=== PATIENT | male | born 1990 | race Caucasian/White ===

== ENCOUNTER 2023-04-23 21:46 | Emergency (ER) | payer OTHER ==
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
[2023-04-23] MEDS ORDERED: XYLOCAINE 1% HCL 20 ML MDV ONE (23:03)
[2023-04-23] MEDS ORDERED: Adacel Vial IM ONE ×2 (23:22→23:27)
[2023-04-23 23:50] VITALS: BP 115/81; PULSE 66; O2SAT 99
--- NOTE | 2023-04-24 07:41 | XRAY ---
Indication: Plantar laceration. Comparison: None 3 nonweightbearing views left foot obtained. No bony, articular, or soft tissue abnormalities.
== END 2023-04-23 23:51 | disposition home or self-care (01) ==
LOC: ED 21:46
DX: S91.112A Laceration without foreign body of left great toe without damage to nail, initial encounter (principal); W45.8XXA Other foreign body or object entering through skin, initial encounter; W22.8XXA Striking against or struck by other objects, initial encounter; Y93.11 Activity, swimming; Y92.838 Other recreation area as the place of occurrence of the external cause; I10 Essential (primary) hypertension; Z79.899 Other long term (current) drug therapy; Z23 Encounter for immunization
CPT/HCPCS: 73630; 90471; 90715; 99283

== ENCOUNTER 2023-09-01 08:44 | Emergency (ER) | payer MEDICAID, OTHER ==
--- NOTE | 2023-09-01 08:47 | ERPHSYRPT ---
- History of Present Illness Time Seen by Provider: 09/01/23 08:47 Historian: patient Exam Limitations: no limitations Physician History: This is a 33-year-old overweight white male who presents with right upper quadrant abdominal pain. His primary care provider is Dr. Orellana. Patient admits to consuming 20 beers a day. He also stated that he has not had any alcoholic beverage the last 2 full 24-hour period. Patient has a history of anxiety/depression and hypertension. Patient has had the right upper quadrant abdominal pain that is sharp and stabbing, intermittently over the last several months. In the last couple days his symptoms have worsened. He has had chronic diarrhea and nausea without vomiting. Patient wants to try to avoid narcotics. Patient also complains of right testicular pain for the last 2 days. Patient states that he has a history of right testicular "cyst". Timing/Duration: intermittent, worse, other (For several months) Quality: sharpness, stabbing Abdominal Pain Onset Location: RUQ Pain Radiation: no radiation Severity of Pain-Max: moderate Severity of Pain-Current: moderate Modifying Factors: Improves With: other (Diarrhea nausea) Associated Symptoms: diarrhea, loss of appetite, nausea, No chest pain, No fever/chills, No shortness of breath, No vomiting Previous symptoms: same symptoms as today, no recent treatment Allergies/Adverse Reactions: Penicillins Allergy (Verified 09/01/23 08:44) Home Medications: Buspirone HCl 7.5 mg PO BID 04/23/23 [History] Citalopram Hydrobromide [Celexa] 40 mg PO DAILY 04/23/23 [History] Lisinopril/Hydrochlorothiazide [Lisinopril-Hctz 20-25 mg Tab] 1 each PO DAILY 04/23/23 [History] Hx Tetanus, Diphtheria Vaccination/Date Given: No (unknown) Hx Influenza Vaccination/Date Given: No Hx Pneumococcal Vaccination/Date Given: No Travel Risk - International Travel Have you traveled outside of the country in past 3 weeks: No - Coronavirus Screening Are you exhibiting any of the following symptoms?: No Close contact with a COVID-19 positive Pt in past 14-21 Days: No - Vaccine Status Have you recieved a Covid-19 vaccination: No - Review of Systems Constitutional: No Symptoms Eyes: No Symptoms Ears, Nose, & Throat: No Symptoms Respiratory: No Symptoms Cardiac: No Symptoms Abdominal/Gastrointestinal: Abdominal Pain, Nausea, Diarrhea, Appetite Changes, No Vomiting, No Constipation Genitourinary Symptoms: No Symptoms Musculoskeletal: No Symptoms Skin: No Symptoms Neurological: No Symptoms Psychological: Alcohol Abuse, Anxiety, Depression Endocrine: No Symptoms Hematologic/Lymphatic: No Symptoms Immunological/Allergic: No Symptoms All Other Systems: Reviewed and Negative - Past Medical History Pertinent Past Medical History: Yes Cardiac History: Hypertension Psycho-Social History: Depression - Past Surgical History Past Surgical History: Yes Musculoskeletal: Orthopedic Surgery Other Surgical History: rt femur, rt ankle - Social History Smoking Status: Never smoker Exposure to second hand smoke: No Drug Use: none Patient Lives Alone: No - Nursing Vital Signs Nursing Vital Signs: Initial Vital Signs Temperature 97.6 F 09/01/23 08:55 Pulse Rate 77 09/01/23 08:55 Respiratory Rate 18 09/01/23 08:55 Blood Pressure 131/97 09/01/23 08:55 O2 Sat by Pulse Oximetry 99 09/01/23 08:55 Pain Scale Pain Intensity 4 - Physical Exam General Appearance: no apparent distress, alert, anxiety, obese Eye Exam: PERRL/EOMI, eyes nml inspection Ears, Nose, Throat Exam: normal ENT inspection, moist mucous membranes Neck Exam: normal inspection, non-tender, supple, full range of motion Respiratory Exam: normal breath sounds, lungs clear, airway intact, No chest tenderness, No respiratory distress Cardiovascular Exam: regular rate/rhythm, normal heart sounds, normal peripheral pulses Gastrointestinal/Abdomen Exam: soft, normal bowel sounds, tenderness (Right upper quadrant), guarding (Right upper quadrant to palpation), No rebound Male Genitalia Exam: normal genitalia Rectal Exam: not done Back Exam: normal inspection, normal range of motion, No CVA tenderness, No vert ebral tenderness Extremity Exam: normal inspection, normal range of motion, pelvis stable Neurologic Exam: alert, oriented x 3, cooperative, 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, normal mood/affect, nml cerebellar function, nml station & gait, sensation nml Skin Exam: normal color, warm, dry Lymphatic Exam: No adenopathy SpO2 Interpretation: normal O2 Delivery: Room Air - Course Nursing assessment & vital signs reviewed: Yes EKG Interpreted by Me: RATE (77), Sinus Rhythm, NORMAL AXIS, NORMAL INTERVALS, NORMAL QRS, NORMAL ST-T, Other (No evidence of acute ischemic changes.) Ordered Tests: Active Orders 24 hr Category Date Time Status EKG-ER Only STAT Care 09/01/23 09:07 Active IV Insertion STAT Care 09/01/23 09:07 Active ABDOMEN AND PELVIS W/0 CONTRAS [CT] Stat Exams 09/01/23 09:07 Completed TESTICLE [US] Stat Exams 09/01/23 09:33 Completed AMYLASE Stat Lab 09/01/23 09:14 Completed CBC W DIFF Stat Lab 09/01/23 09:14 Completed CMP Stat Lab 09/01/23 09:14 Completed ETHYL ALCOHOL Stat Lab 09/01/23 09:14 Completed LIPASE Stat Lab 09/01/23 09:14 Completed UA W/RFX UR CULTURE Stat Lab 09/01/23 09:14 Completed Urine Triage Profile Stat Lab 09/01/23 09:14 Completed Medication Summary Discontinued Medications Generic Name Dose Route Start Last Admin Trade Name Freq PRN Reason Stop Dose Admin Sodium Chloride 1,000 mls @ 999 mls/hr 09/01/23 09:07 09/01/23 10:39 Sodium Chloride 0.9% 1000 Ml IV 09/01/23 10:07 Infused .Q1H1M STA Infusion Sodium Chloride Confirm 09/01/23 09:29 Sodium Chloride 0.9% 1000 Ml Administered 09/01/23 09:30 Dose 1,000 mls @ ud .ROUTE .STK-MED ONE Lorazepam 1 mg 09/01/23 09:45 09/01/23 09:57 Lorazepam 2 Mg/1 Ml 2 Mg Vial IV 09/01/23 09:46 1 mg STAT ONE Administration Lorazepam Confirm 09/01/23 09:56 Lorazepam 2 Mg/1 Ml 2 Mg Vial Administered 09/01/23 09:57 Dose 2 mg .ROUTE .STK-MED ONE Ondansetron HCl 4 mg 09/01/23 09:07 09/01/23 09:31 Ondansetron Hcl 4 Mg/2 Ml Vial IV 09/01/23 09:08 4 mg STAT ONE Administration Ondansetron HCl Confirm 09/01/23 09:28 Ondansetron Hcl 4 Mg/2 Ml Vial Administered 09/01/23 09:29 Dose 4 mg .ROUTE .STK-MED ONE Pantoprazole Sodium 40 mg 09/01/23 09:07 09/01/23 09:31 Pantoprazole 40 Mg Vial IV 09/01/23 09:08 40 mg STAT ONE Administration Pantoprazole Sodium Confirm 09/01/23 09:28 Pantoprazole 40 Mg Vial Administered 09/01/23 09:29 Dose 40 mg IV .STK-MED ONE Lab/Rad Data: Laboratory Result Diagrams 09/01/23 09:14 09/01/23 09:14 Laboratory Results 09/01/23 09/01/23 09/01/23 Range/Units 09:14 09:14 09:14 WBC 6.0 (4.0-10.5) x10^3/uL RBC 5.11 (4.1-5.6) x10^6/uL Hgb 15.3 (12.5-18.0) g/dL Hct 45.4 (42-50) % MCV 88.8 (78-100) fL MCH 29.9 (26-32) pg MCHC 33.7 (32-36) g/dL RDW 11.7 (11.5-14.0) % Plt Count 266 (150-450) x10^3/uL MPV 9.6 (7.5-11.0) fL Gran % 66.1 H (36.0-66.0) % Immature Gran % (Auto) 0.3 (0.00-0.4) % Nucleat RBC Rel Count 0.0 (0.00-0.1) % Eos # (Auto) 0.13 (0-0.5) x10^3/uL Immature Gran # (Auto) 0.02 (0.00-0.03) x10^3u/L Absolute Lymphs (auto) 1.21 (1.0-4.6) x10^3/uL Absolute Monos (auto) 0.64 (0.0-1.3) x10^3/uL Absolute Nucleated RBC 0.00 (0.00-0.01) x10^3u/L Lymphocytes % 20.1 L (24.0-44.0) % Monocytes % 10.6 (0.0-12.0) % Eosinophils % 2.2 (0.00-5.0) % Basophils % 0.7 (0.0-0.4) % Absolute Granulocytes 3.98 (1.4-6.9) x10^3/uL Basophils # 0.04 (0-0.4) x10^3/uL Sodium 139 (137-145) mmol/L Potassium 4.0 (3.5-5.1) mmol/L Chloride 105 (98-107) mmol/L Carbon Dioxide 27 (22-30) mmol/L Anion Gap 10.5 (5-15) MEQ/L BUN 19 (9-20) mg/dL Creatinine 0.93 (0.66-1.25) mg/dL Estimated GFR > 60.0 ML/MIN Glucose 99 (74-106) mg/dL Calcium 9.0 (8.4-10.2) mg/dL Total Bilirubin 0.60 (0.2-1.3) mg/dL AST 39 (17-59) U/L ALT 52 H (0-50) U/L Alkaline Phosphatase 81 (38-126) U/L Serum Total Protein 7.4 (6.3-8.2) g/dL Albumin 4.4 (3.5-5.0) g/dL Amylase 86 (30-110) U/L Lipase 62 (23-300) U/L Urine Color (Yellow) Urine Appearance (Clear) Urine pH (4.6-8.0) Ur Specific Bangs (1.005-1.030) Urine Protein (Negative) Urine Glucose (UA) (Negative) mg/dL Urine Ketones (Negative) Urine Blood (Negative) Urine Nitrite (Negative) Urine Bilirubin (Negative) Urine Urobilinogen (0.2) mg/dL Ur Leukocyte Esterase (Negative) U Hyaline Cast (Auto) (0-2) /LPF Urine Microscopic RBC (0-5) /HPF Urine Microscopic WBC (0-5) /HPF Ur Epithelial Cells (None Seen) /HPF Urine Bacteria (None Seen) /HPF Urine Culture Reflexed (NO) Urine Opiates Level NEGATIVE (NEGATIVE) Ur Methadone NEGATIVE (NEGATIVE) Urine Barbiturates NEGATIVE (NEGATIVE) Ur Phencyclidine (PCP) NEGATIVE (NEGATIVE) Urine Amphetamine NEGATIVE (NEGATIVE) U Benzodiazepine Level NEGATIVE (NEGATIVE) Urine Cocaine NEGATIVE (NEGATIVE) Urine Marijuana (THC) NEGATIVE (NEGATIVE) Ethyl Alcohol < 10 (0-10) mg/dL 09/01/23 Range/Units 09:14 WBC (4.0-10.5) x10^3/uL RBC (4.1-5.6) x10^6/uL Hgb (12.5-18.0) g/dL Hct (42-50) % MCV (78-100) fL MCH (26-32) pg MCHC (32-36) g/dL RDW (11.5-14.0) % Plt Count (150-450) x10^3/uL MPV (7.5-11.0) fL Gran % (36.0-66.0) % Immature Gran % (Auto) (0.00-0.4) % Nucleat RBC Rel Count (0.00-0.1) % Eos # (Auto) (0-0.5) x10^3/uL Immature Gran # (Auto) (0.00-0.03) x10^3u/L Absolute Lymphs (auto) (1.0-4.6) x10^3/uL Absolute Monos (auto) (0.0-1.3) x10^3/uL Absolute Nucleated RBC (0.00-0.01) x10^3u/L Lymphocytes % (24.0-44.0) % Monocytes % (0.0-12.0) % Eosinophils % (0.00-5.0) % Basophils % (0.0-0.4) % Absolute Granulocytes (1.4-6.9) x10^3/uL Basophils # (0-0.4) x10^3/uL Sodium (137-145) mmol/L Potassium (3.5-5.1) mmol/L Chloride (98-107) mmol/L Carbon Dioxide (22-30) mmol/L Anion Gap (5-15) MEQ/L BUN (9-20) mg/dL Creatinine (0.66-1.25) mg/dL Estimated GFR ML/MIN Glucose (74-106) mg/dL Calcium (8.4-10.2) mg/dL Total Bilirubin (0.2-1.3) mg/dL AST (17-59) U/L ALT (0-50) U/L Alkaline Phosphatase (38-126) U/L Serum Total Protein (6.3-8.2) g/dL Albumin (3.5-5.0) g/dL Amylase (30-110) U/L Lipase (23-300) U/L Urine Color Yellow (Yellow) Urine Appearance Clear (Clear) Urine pH 6.0 (4.6-8.0) Ur Specific Bangs 1.025 (1.005-1.030) Urine Protein Negative (Negative) Urine Glucose (UA) Negative (Negative) mg/dL Urine Ketones Negative (Negative) Urine Blood Negative (Negative) Urine Nitrite Negative (Negative) Urine Bilirubin Negative (Negative) Urine Urobilinogen 1.0 A (0.2) mg/dL Ur Leukocyte Esterase Negative (Negative) U Hyaline Cast (Auto) NONE SEEN (0-2) /LPF Urine Microscopic RBC 0-2 (0-5) /HPF Urine Microscopic WBC 0-2 (0-5) /HPF Ur Epithelial Cells None Seen (None Seen) /HPF Urine Bacteria None Seen (None Seen) /HPF Urine Culture Reflexed NO (NO) Urine Opiates Level (NEGATIVE) Ur Methadone (NEGATIVE) Urine Barbiturates (NEGATIVE) Ur Phencyclidine (PCP) (NEGATIVE) Urine Amphetamine (NEGATIVE) U Benzodiazepine Level (NEGATIVE) Urine Cocaine (NEGATIVE) Urine Marijuana (THC) (NEGATIVE) Ethyl Alcohol (0-10) mg/dL - Progress Progress: improved, pain not gone completely, re-examined Progress Note: 09/01/23 09:51 This patient's medical issue is 1 of moderate complexity. The level of complexity in the work-up performed is based on review of the patient's past medical history, review the patient's medication list, review the patient's drug allergy list, history of present illness and physical findings on examination. The work-up in this patient includes placement of intravenous line, infusion of normal saline solution, infusion of Zofran intravenously, infusion of Protonix intravenously, CBC, CMP, twelve-lead EKG, urinalysis, urine drug screen, amylase, lipase and CT scan of the abdomen pelvis. Once the patient obtains a ride home, we will provide the patient with a dose of Ativan 1 mg intravenously. 09/01/23 10:40 I reviewed and interpreted the results of the laboratory work-up. There is no evidence of any acute, emergent medical issue based on the labs. CAT scan of the abdomen pelvis without contrast shows subtle by lateral lower lobe patchy groundglass opacities. Questionable pneumonia. Fatty liver is present. Remainder of the CT scan of the abdomen pelvis without contrast is normal. This study was interpreted by the radiologist and I reviewed the i mpression testicular ultrasound was interpreted by the radiologist and I reviewed the impression. There are tiny bilateral epididymal cysts. The remainder of the testicular sonogram is negative. The patient's medical issue is likely secondary to his chronic alcohol use/abuse. There is findings on the CT scan of the abdomen pelvis suggesting possible pneumonia as bilaterally and therefore we will treat him with a Z-Jeffy. I will also send a prescription for Pepcid in this patient to treat him for possible alcoholic gastritis. Counseled pt/family regarding: lab results, diagnosis, need for follow-up, rad results Medical Desision Making - Diagnostic Testing Diagnostic test were ordered, analyzed, and reviewed by me: Yes Radiological Interpretation: Reviewed by me, Teleradiologist Report - Risk of complications The pt has a mod risk of morbidity or mortality based on: Need for prescription drug management - Departure Departure Disposition: Home Clinical Impression: Right upper quadrant abdominal pain, Opacities of both lungs present on chest x-ray Condition: Stable Critical Care Time: No Referrals: PATRICIA ELLIOTT MD [Primary Care Provider] - Follow up/PCP as directed Additional Instructions: Avoid fatty greasy spicy food intake. Avoid intake of tobacco, caffeine and alcohol. Take the medication as prescribed. Call your primary care physician today, 09/01/2023, to make arrangements for further evaluation management. Prescriptions: Famotidine 20 mg [Pepcid 20 MG] 20 mg PO DAILY #10 tablet Azithromycin 250 mg [Zithromax 250 MG TABLET] 250 mg PO ZPACK #6 tablet
[2023-09-01 08:57] VITALS: RESP 18; TEMP 97.6; O2SAT 99
[2023-09-01] MEDS ORDERED: Sodium Chloride 0.9% 1000 ML 1,000 ML IV STA (09:07)
[2023-09-01] MEDS ORDERED: Zofran 4 MG/2 ML VIAL IV ONE (09:07)
[2023-09-01] MEDS ORDERED: PROTONIX 40 MG IV IV ONE ×2 (09:07→09:28)
[2023-09-01] MEDS ORDERED: Zofran 4 MG/2 ML VIAL ONE (09:28)
[2023-09-01] MEDS ORDERED: Sodium Chloride 0.9% 1000 ML 1,000 ML ONE (09:29)
[2023-09-01 09:44] VITALS: BP 121/84; PULSE 88
[2023-09-01] MEDS ORDERED: Ativan 2 MG/1 ML VIAL IV ONE (09:45)
--- NOTE | 2023-09-01 09:51 | XRAY ---
Indication: Right upper quadrant pain. Multiple contiguous axial images obtained through the abdomen and pelvis without contrast. Comparison: None Lung bases demonstrates subtle bilateral lower lobe patchy groundglass opacities. No consolidation or effusion heart not enlarged. Noncontrasted stomach and bowel loops appear nonobstructed with normal appendix. Diffuse fatty liver. No free fluid/air. Remaining liver, gallbladder, pancreas, spleen, adrenal glands, kidneys, ureters, bladder, and aorta are unremarkable for noncontrast exam. Osseous structures intact. Impression: 1. Subtle bilateral lower lobe patchy ground glass opacities. Rule out pneumonia. 2. Fatty liver. 3. Remaining CT abdomen/pelvis without contrast exam is negative.
[2023-09-01] MEDS ORDERED: Ativan 2 MG/1 ML VIAL ONE (09:56)
[2023-09-01 09:57] LABS: Absolute Neutrophil Ct (ANC) 3.98 x10^3/uL (1.4-6.9); BASOPHIL % 0.7 % (0.0-0.4); Basophil (Absolute #) 0.04 x10^3/uL (0-0.4); Eosinophil % 2.2 % (0.00-5.0); Eosinophil (Absolute #) 0.13 x10^3/uL (0-0.5); Hematocrit 45.4 % (42-50); Hemoglobin 15.3 g/dL (12.5-18.0); IMMATURE GRAN # 0.02 x10^3u/L (0.00-0.03); IMMATURE GRAN % 0.3 % (0.00-0.4); Lymphocyte (Absolute #) 1.21 x10^3/uL (1.0-4.6); Lymphocytes % 20.1 % (24.0-44.0); Mean Cell Volume 88.8 fL (78-100); Mean Corpuscular Hemoglobin 29.9 pg (26-32); Mean Corpuscular Hgb Concent. 33.7 g/dL (32-36); Mean Platelet Volume 9.6 fL (7.5-11.0); Monocyte (Absolute #) 0.64 x10^3/uL (0.0-1.3); Monocytes % 10.6 % (0.0-12.0); Neutrophil % 66.1 % (36.0-66.0); Platelet Count 266 x10^3/uL (150-450); Red Blood Count 5.11 x10^6/uL (4.1-5.6); Red Cell Distribution Width 11.7 % (11.5-14.0)
[2023-09-01 10:05] LABS: ADD URINE CULTURE? NO (NO); Appearance Clear (Clear); Bacteria None Seen /HPF (None Seen); Bilirubin Negative (Negative); Blood Negative (Negative); Epithelial Cells None Seen /HPF (None Seen); Glucose, Urine Negative (Negative); Hyaline Casts NONE SEEN /LPF (0-2); Ketones Negative (Negative); Leukocyte Esterase Negative (Negative); Nitrite Negative (Negative); Protein,Urine Dip Negative (Negative); RBC 0-2 /HPF (0-5); Specific Gravity 1.025 (1.005-1.030); WBC 0-2 /HPF (0-5)
[2023-09-01 10:14] LABS: Amphetamine,Urine NEGATIVE (NEGATIVE); Barbiturate,Urine NEGATIVE (NEGATIVE); Benzodiazepine,Urine NEGATIVE (NEGATIVE); Cocaine,Urine NEGATIVE (NEGATIVE); Methadone,Urine NEGATIVE (NEGATIVE); Opiate,Urine NEGATIVE (NEGATIVE); PCP,Urine NEGATIVE (NEGATIVE); THC,Urine NEGATIVE (NEGATIVE)
[2023-09-01 10:18] LABS: ALBUMIN 4.4 g/dL (3.5-5.0); ALKALINE PHOSPHATASE 81 U/L (38-126); AMYLASE 86 U/L (30-110); ANION GAP 10.5 MEQ/L (5-15); BLOOD UREA NITROGEN 19 mg/dL (9-20); CHLORIDE 105 mmol/L (98-107); Carbon Dioxide 27 mmol/L (22-30); Creatinine 1 0.93 mg/dL (0.66-1.25); EST GLOMERULAR FILTRATION RATE > 60.0 ML/MIN; ETHYL ALCOHOL < 10 mg/dL (0-10); Glucose 99 mg/dL (74-106); LIPASE 62 U/L (23-300); SGOT/AST 39 U/L (17-59); SGPT/ALT 52 U/L (0-50); SODIUM 139 mmol/L (137-145); Total Protein 7.4 g/dL (6.3-8.2)
--- NOTE | 2023-09-01 10:33 | XRAY ---
Indication: Right testicle pain. Epididymal cysts. Two-dimensional testicular sonogram performed. Comparison: None Both testicles homogeneous in echogenicity and demonstrates normal color perfusion. Right testicle measures 4.7 x 3.0 x 3.3 cm and left measures 4.8 x 2.9 x 3.8 cm. 8 mm right and 4 mm left epididymal epididymal cyst. No suspicious extratesticular mass or large hydrocele. Impression: Tiny bilateral epididymal cysts. Remaining testicular sonogram is negative.
== END 2023-09-01 11:25 | disposition home or self-care (01) ==
LOC: ED 08:44
DX: R10.11 Right upper quadrant pain (principal); R91.8 Other nonspecific abnormal finding of lung field; R19.7 Diarrhea, unspecified; R11.0 Nausea; N50.811 Right testicular pain; I10 Essential (primary) hypertension; Z79.899 Other long term (current) drug therapy; Z28.310 Unvaccinated for COVID-19
CPT/HCPCS: 36000; 36415; 74176; 76870; 80053; 80307; 81001; 82077; 82150; 83690; 85025; 93005; 96360; 96374; 96375; 99284; J2060; J2405

== ENCOUNTER 2024-02-13 20:45 | Emergency (ER) | payer OTHER ==
--- NOTE | 2024-02-13 20:58 | ERPHSYRPT ---
- History of Present Illness Time Seen by Provider: 02/13/24 20:58 Source: patient, family Exam Limitations: no limitations Physician History: pt hit his right innner thigh some days ago has a heamtoma and is concerned for blood clot. Risk/benefits for US discussed with pt and family and they wish to proceed. ordered and discussed. No other complaints of injuries had left ankle involved in that injury which is now resolved and nontender with rull ROM. ABd soft nontender without mass or peritoneal signs. Timing/Duration: day(s) Severity: mild Associated Symptoms: denies symptoms Allergies/Adverse Reactions: Penicillins Allergy (Verified 02/13/24 20:52) Home Medications: Buspirone HCl 7.5 mg PO Q12H PRN PRN 04/23/23 [History] Lisinopril/Hydrochlorothiazide [Lisinopril-Hctz 20-25 mg Tab] 1 each PO DAILY 04/23/23 [History] Escitalopram Oxalate [Lexapro] 10 mg PO DAILY 02/13/24 [History] Hx Tetanus, Diphtheria Vaccination/Date Given: No (unknown) Hx Influenza Vaccination/Date Given: No Hx Pneumococcal Vaccination/Date Given: No - Review of Systems Constitutional: No Fever, No Chills Eyes: No Symptoms Ears, Nose, & Throat: No Symptoms Respiratory: No Cough, No Dyspnea Cardiac: No Chest Pain, No Edema, No Syncope Abdominal/Gastrointestinal: No Abdominal Pain, No Nausea, No Vomiting, No Diarrhea Genitourinary Symptoms: No Dysuria Musculoskeletal: No Back Pain, No Neck Pain Skin: Other (nontender right thigh hematoma. ), No Rash Neurological: No Dizziness, No Focal Weakness, No Sensory Changes Psychological: No Symptoms Endocrine: No Symptoms Hematologic/Lymphatic: No Symptoms Immunological/Allergic: No Symptoms All Other Systems: Reviewed and Negative - Past Medical History Pertinent Past Medical History: Yes Cardiac History: Hypertension Psycho-Social History: Depression - Past Surgical History Past Surgical History: Yes Musculoskeletal: Orthopedic Surgery Other Surgical History: rt femur, rt ankle - Social History Smoking Status: Never smoker Exposure to second hand smoke: No Drug Use: none Patient Lives Alone: No - Nursing Vital Signs Nursing Vital Signs: Initial Vital Signs Temperature 97.7 F 02/13/24 20:54 Pulse Rate 80 02/13/24 20:54 Respiratory Rate 16 04/07/24 20:54 Blood Pressure 156/81 04/07/24 20:54 O2 Sat by Pulse Oximetry 100 02/13/24 20:54 Pain Scale Pain Intensity 0 - Physical Exam General Appearance: no apparent distress, alert Eye Exam: PERRL/EOMI, eyes nml inspection Ears, Nose, Throat Exam: normal ENT inspection, TMs normal, pharynx normal, moist mucous membranes Neck Exam: normal inspection, non-tender, supple, full range of motion Respiratory Exam: normal breath sounds, lungs clear, No respiratory distress Cardiovascular Exam: regular rate/rhythm, normal heart sounds, normal peripheral pulses Gastrointestinal/Abdomen Exam: soft, normal bowel sounds, No tenderness, No mass Rectal Exam: deferred Back Exam: normal inspection, normal range of motion, No CVA tenderness, No vertebral tenderness Extremity Exam: normal inspection, normal range of motion, pelvis stable, other (hematoma right ant medial thigh nontender. ) Neurologic Exam: alert, oriented x 3, cooperative, normal mood/affect, nml cerebellar function, nml station & gait, sensation nml, No motor deficits Skin Exam: normal color, warm, dry, No rash Lymphatic Exam: No adenopathy - Course Nursing assessment & vital signs reviewed: Yes - Radiology Ultrasound Exam Right Venous Lower Extremity Ultrasound: Other (No DVT per US reading) Ordered Tests: Active Orders 24 hr Category Date Time Status VENOUS UNILAT/LIMITED EXTREMIT [US] Stat Exams 02/13/24 21:41 Taken - Progress Progress: improved, re-examined Progress Note: 02/13/24 23:10 US read negative for DVT. Pt is advised by me that there still is a risk for later developing DVT and that he should return if any concerning signs or symptoms later and he voices understanding and will also f/u with his to re check. Counseled pt/family regarding: diagnosis, need for follow-up, rad results Medical Desision Making - Discussion of managment Reviewed:: Test results, Need for additional workup Agreed on:: Treatment plan, need for follow-up, decision to admit - Diagnostic Testing Diagnostic test were ordered, analyzed, and reviewed by me: Yes Radiological Interpretation: Reviewed by me - Risk of complications The pt has a high risk of morbidity or mortality based on: Decision regarding hospitilization or escalation of hosp level of care - Departure Departure Disposition: Home Clinical Impression: Traumatic hematoma of right thigh Condition: Good Critical Care Time: No Referrals: URIEL ARREOLA [employer] SALES REPRESENTATIVE [Primary Care Provider] - Follow up/PCP as directed Instructions: Deep Vein Thrombosis (Blood Clots in the Legs) (DC), Contusion (DC) Additional Instructions: ALthough we did not find a blood clot , there is a risk to later develope one after trauma like this so be sure to return if any swelling increased redness , short of breath or any other symptoms of cocnern and to see your Dr. to recheck your leg also. We are also proving instructions for DVT blood clot to help you know what to look for just in case , although you did not have any at this time.
[2024-02-13 21:07] VITALS: TEMP 97.7
[2024-02-13 23:32] VITALS: BP 105/77; PULSE 62; RESP 18; O2SAT 96
--- NOTE | 2024-02-14 08:44 | XRAY ---
Indication: Right thigh hematoma. DVT. Two-dimensional sonogram and color Doppler imaging major venous vessels right leg performed. Comparison: None No thrombus seen in examined deep venous vessels right leg including greater saphenous vein. Veins demonstrate normal compressibility. Venous waveforms are normal with and without augmentation. Impression: Right leg negative for DVT.
== END 2024-02-13 23:37 | disposition home or self-care (01) ==
LOC: ED 20:45
DX: S70.11XA Contusion of right thigh, initial encounter (principal); I10 Essential (primary) hypertension; Z79.899 Other long term (current) drug therapy
CPT/HCPCS: 93971; 99282

== ENCOUNTER 2024-05-22 19:03 | Emergency (ER) | payer OTHER ==
--- NOTE | 2024-05-22 19:05 | ERPHSYRPT ---
- History of Present Illness Time Seen by Provider: 05/22/24 19:04 Source: patient Exam Limitations: no limitations Physician History: This is a 34-year-old white male patient who presents to the emergency room with a "knot in the back of his throat" on the left side. Patient has never had a tonsillectomy per his report. He noticed this at approximately 7:00 PM this evening (05/22/2024). Patient does not chew tobacco or smoke tobacco. Patient does drink 6-12 beers each day. Patient has a history of hypertension, anxiety and depression. He has not had any fever. He has not had hemoptysis. He is not short of breath. He has had no cough. He denies chest pain Timing/Duration: abrupt onset Severity: mild ENT Location: throat (Left side tonsil) Prearrival Treatment: no prearrival treatment Modifying Factors: Improves With: nothing Associated Symptoms: sore throat (Left side tonsil), No tooth pain, No diff iculty swallowing, No voice change Allergies/Adverse Reactions: Penicillins Allergy (Verified 05/22/24 19:24) Home Medications: Buspirone HCl 10 mg PO TID PRN PRN 04/23/23 [History] Lisinopril/Hydrochlorothiazide [Lisinopril-Hctz 20-25 mg Tab] 1 each PO DAILY 04/23/23 [History] Escitalopram Oxalate [Lexapro] 10 mg PO DAILY 02/13/24 [History] Hx Tetanus, Diphtheria Vaccination/Date Given: No (unknown) Hx Influenza Vaccination/Date Given: No Hx Pneumococcal Vaccination/Date Given: No Travel Risk - Emerging Infectious Disease Are you exhibiting symptoms associated with any current EIDs: No - Review of Systems Constitutional: No Symptoms Eyes: No Symptoms Ears, Nose, & Throat: Throat Swelling (Left side tonsillar swelling) Respiratory: No Symptoms Cardiac: No Symptoms Abdominal/Gastrointestinal: No Symptoms Genitourinary Symptoms: No Symptoms Musculoskeletal: No Symptoms Skin: No Symptoms Neurological: No Symptoms Psychological: No Symptoms Endocrine: No Symptoms Hematologic/Lymphatic: No Symptoms Immunological/Allergic: No Symptoms All Other Systems: Reviewed and Negative - Past Medical History Pertinent Past Medical History: Yes Neurological History: No Pertinent History ENT History: No Pertinent History Cardiac History: Hypertension Respiratory History: No Pertinent History Endocrine Medical History: No Pertinent History Musculoskeletal History: Fractures GI Medical History: No Pertinent History History: No Pertinent History Psycho-Social History: Depression Male Reproductive Disorders: No Pertinent History - Past Surgical History Past Surgical History: Yes Neuro Surgical History: No Pertinent History Cardiac: No Pertinent History Respiratory: No Pertinent History Gastrointestinal: No Pertinent History Genitourinary: No Pertinent History Musculoskeletal: Orthopedic Surgery Male Surgical History: No Pertinent History Other Surgical History: rt femur, rt ankle - Social History Smoking Status: Never smoker Exposure to second hand smoke: No Drug Use: none Patient Lives Alone: No - Social Determinants of Health Will the patient participate in the screening: Yes Do you worry about a steady place to live?: No In the past 12 months,have you had to go without utilities?: No Transportation Issues: No Has anyone in your support network made you feel unsafe?: No Have you or anyone in your house had to go without enough: No - Nursing Vital Signs Nursing Vital Signs: Initial Vital Signs Temperature 98.8 F 05/22/24 19:12 Pulse Rate 79 05/22/24 19:12 Respiratory Rate 18 05/22/24 19:12 Blood Pressure 131/78 05/22/24 19:12 O2 Sat by Pulse Oximetry 100 05/22/24 19:12 Pain Scale Pain Intensity 4 - Physical Exam General Appearance: no apparent distress, alert, anxiety, obese Eye Exam: bilateral eye: normal inspection, PERRL, EOMI Ear Exam: bilateral ear: auricle normal, canal normal, TM normal Nasal Exam: normal inspection Throat Exam: pharynx normal, tonsillar swelling (Left side), No dental tenderness Neck Exam: normal inspection, non-tender, supple, full range of motion, trachea midline Cardiovascular/Respiratory Exam: chest non-tender, no respiratory distress Abdominal Exam: non-tender Neurologic Exam: alert, oriented x 3, cooperative, last pattern grader II-XII nml as tested, normal mood/affect, nml cerebellar function, nml station & gait, sensation nml Skin Exam: normal color, warm, dry SpO2 Interpretation: normal O2 Delivery: Room Air Ordered Tests: Medication Summary Discontinued Medications Generic Name Dose Route Start Last Admin Trade Name Freq PRN Reason Stop Dose Admin Clindamycin HCl 300 mg 05/22/24 19:50 Clindamycin Hcl 150 Mg Capsule PO 05/22/24 19:51 STAT ONE - Progress Progress: unchanged Progress Note: 05/22/24 19:58 My medical decision making and the assignment of low complexity to this patient's medical issue today is based on review of the patient's past medical h istory, review of patient's medication list, review of patient drug allergy list, history present illness and physical findings on examination. No radiographic or laboratory studies necessary in today's workup of this patient. Differential diagnosis includes was not limited to tonsillar abscess, tonsillitis, pharyngitis Counseled pt/family regarding: diagnosis, need for follow-up Medical Desision Making - Diagnostic Testing Diagnostic test were ordered, analyzed, and reviewed by me: No - Risk of complications Minimal Risk: Minimal risk of morbidity The pt has a mod risk of morbidity or mortality based on: Need for prescription drug management - Departure Departure Disposition: Home Clinical Impression: Swelling of tonsil Condition: Stable Critical Care Time: No Referrals: URIEL ARREOLA FNP [Primary Care Provider] - Follow up/PCP as directed Additional Instructions: Drink plenty of liquids. Use Tylenol and ibuprofen for pain control if there are no contraindications. Take your antibiotics as prescribed. Follow-up with an research anthropologist (list of providers given to you). Call them tomorrow, 05/23/2024 to make arrangements for follow-up appointment for further evaluation management to be seen within the next 3 to 5 days. Prescriptions: Clindamycin HCl 150 mg [Cleocin 150 mg Capsule] 2 cap PO QID #56 cap
[2024-05-22 19:13] VITALS: TEMP 98.8; O2SAT 100
[2024-05-22] MEDS ORDERED: CLEOCIN 150 MG CAPSULE ONE (19:54)
[2024-05-22] MEDS: CLEOCIN 150 MG CAPSULE PO ONE (19:56)
[2024-05-22 20:04] VITALS: BP 125/73; PULSE 65; RESP 16
== END 2024-05-22 20:18 | disposition home or self-care (01) ==
LOC: ED 19:03
DX: J03.90 Acute tonsillitis, unspecified (principal); I10 Essential (primary) hypertension; Z79.899 Other long term (current) drug therapy
CPT/HCPCS: 99282; A9270-GY

== ENCOUNTER 2024-08-05 12:01 | Emergency (ER) | payer OTHER ==
[2024-08-05 12:10] VITALS: BP 145/85; PULSE 81; RESP 16; TEMP 98; O2SAT 99
[2024-08-05] MEDS ORDERED: BACIGUENT PACKET ONE (12:11)
--- NOTE | 2024-08-05 12:16 | ERPHSYRPT ---
- History of Present Illness Time Seen by Provider: 08/05/24 12:13 Source: patient Exam Limitations: no limitations Patient Subjective Stated Complaint: Pt reports night he thinks he got bit by something when he was outside mowing the grass. Left calf has became w arm/red/swollen. Triage Nursing Assessment: Pt alert and oriented x3. Respirations easy/nonlabored. Skin w/p/d. Left calf is warm/red/swollen. Physician History: Pt reports night he thinks he got bit by something when he was outside mowing the grass. Left calf has became warm/red/swollen. Timing/Duration: yesterday Severity: mild Associated Symptoms: denies symptoms Allergies/Adverse Reactions: Penicillins Allergy (Verified 08/05/24 12:10) Home Medications: Buspirone HCl 10 mg PO TID PRN PRN 04/23/23 [History] Lisinopril/Hydrochlorothiazide [Lisinopril-Hctz 20-25 mg Tab] 1 each PO DAILY 04/23/23 [History] Escitalopram Oxalate [Lexapro] 10 mg PO DAILY 02/13/24 [History] Hx Tetanus, Diphtheria Vaccination/Date Given: No (unknown) Hx Influenza Vaccination/Date Given: No Hx Pneumococcal Vaccination/Date Given: No Travel Risk - International Travel Have you traveled outside of the country in past 3 weeks: No - Emerging Infectious Disease Are you exhibiting symptoms associated with any current EIDs: No - Review of Systems Constitutional: No Symptoms Eyes: No Symptoms Ears, Nose, & Throat: No Symptoms Respiratory: No Symptoms Cardiac: No Symptoms Abdominal/Gastrointestinal: No Symptoms Genitourinary Symptoms: No Symptoms Musculoskeletal: No Symptoms Skin: Induration Neurological: No Symptoms Psychological: No Symptoms Endocrine: No Symptoms Hematologic/Lymphatic: No Symptoms Immunological/Allergic: No Symptoms - Past Medical History Pertinent Past Medical History: Yes Neurological History: No Pertinent History ENT History: No Pertinent History Cardiac History: Hypertension Respiratory History: No Pertinent History Endocrine Medical History: No Pertinent History Musculoskeletal History: Fractures GI Medical History: No Pertinent History History: No Pertinent History Psycho-Social History: Depression Male Reproductive Disorders: No Pertinent History Other Medical History: broken tailbone - Past Surgical History Past Surgical History: Yes Neuro Surgical History: No Pertinent History Cardiac: No Pertinent History Respiratory: No Pertinent History Gastrointestinal: No Pertinent History Genitourinary: No Pertinent History Musculoskeletal: Orthopedic Surgery Male Surgical History: No Pertinent History Other Surgical History: rt femur, rt ankle - Social History Smoking Status: Never smoker Exposure to second hand smoke: No Drug Use: none Patient Lives Alone: No - Social Determinants of Health Will the patient participate in the screening: Declined to provide - Nursing Vital Signs Nursing Vital Signs: Initial Vital Signs Temperature 98 F 08/05/24 12:04 Pulse Rate 81 08/05/24 12:04 Respiratory Rate 16 08/05/24 12:04 Blood Pressure 145/85 08/05/24 12:04 O2 Sat by Pulse Oximetry 99 08/05/24 12:04 Pain Scale Pain Intensity 5 - Physical Exam General Appearance: no apparent distress Eye Exam: PERRL/EOMI Ears, Nose, Throat Exam: normal ENT inspection Neck Exam: normal inspection Respiratory Exam: normal breath sounds Cardiovascular Exam: regular rate/rhythm Gastrointestinal/Abdomen Exam: soft Back Exam: normal inspection Extremity Exam: normal inspection Neurologic Exam: alert, oriented x 3 Skin Exam: normal color, other (redness left calf) SpO2 Interpretation: normal SpO2: 99 O2 Delivery: Room Air - Course Nursing assessment & vital signs reviewed: Yes - Progress Progress: unchanged Counseled pt/family regarding: need for follow-up Medical Desision Making - Diagnostic Testing Diagnostic test were ordered, analyzed, and reviewed by me: No - Risk of complications Minimal Risk: Minimal risk of morbidity - Departure Departure Disposition: Home Clinical Impression: Insect bite Qualifiers: Encounter type: initial encounter Site of insect bite: lower leg Laterality: left Qualified Code(s): S80.862A - Insect bite (nonvenomous), left lower leg, initial encounter; W57.XXXA - Bitten or stung by nonvenomous insect and other nonvenomous arthropods, initial encounter Condition: Stable Critical Care Time: No Referrals: URIEL ARREOLA FNP [Primary Care Provider] - Follow up/PCP as directed Instructions: Insect Bites and Stings (DC) Additional Instructions: Discharge/Care Plan FELIPE GALVIN was seen on 08/05/24 in the Emergency Room. The patient was counseled regarding Diagnosis,Lab results, Imaging studies, need for follow up and when to return to the Emergency Room. Prescriptions given: Discharge Note I have spoken with the patient and/or caregivers. I have explained the patient's condition, diagnosis and treatment plan based on the information available to me at this time. I have answered the patient's and/or caregiver's questions and addressed any concerns. The patient and/or caregivers have as good understanding of the patient's diagnosis, condition and treatment plan as can be expected at this point. The vital signs have been stable. The patient's condition is stable and appropriate for discharge from the emergency department. The patient will pursue further outpatient evaluation with the primary care physician or other designated or consulting physician as outlined in the discharge instructions. The patient and/or caregivers are agreeable to this plan of care and follow-up instructions have been explained in detail. The patient and/or caregivers have received these instruction. The patient/and or caregivers are aware that any significant change in condition or worsening of symptoms should prompt an immediate return to this or the closest emergency department or call 911. FELIPE GALVIN was seen on 08/05/24 n the Emergency Room. At that time you were treated for an emergent condition, during your visit Laboratory, Radiology and/or other procedures may have been ordered. It is very important that you follow-up with your Primary Care Physician ANGEL GEIGER within the next 24-48 hours to review your Emergency Room visit and the final results of testing that was ordered. Some test results such as Urine Cultures, Blood Cultures, and other cultures if ordered will not be finalized for 24-48 hours. If you do not have a Primary Care Provider please call the medical records department at [phone] ext [phone] to obtain a copy of your results or you may sign into our patient portal to obtain these results by visiting us @ [email or web address] and completing the following steps: 1. Click on the Patient Portal link 2. Click the Patient Self Enrollment Link to complete the enrollment form and entering your 3. Once the enrollment form is completed you will receive an email with a temporary ID and password at the email address you provided. 4. Next choose a user name and password. Your user name must be at least 4 characters long and your password must be at least 4 characters long. 5. Choose a security question from the list and provide your answer to the question. If you already have signed into the Health Portal you may access your Health Care Information 31/05 by the following steps: 1. Login to our website @ [email or web address] 2. Enter your original user name and password. FAQS The [facility] Health Portal is an online tool that contains your Lab Results, Radiology Reports, Visit History, Discharge Instructions and Health Summary Lab and Radiology Results will not be available for 72 hours on the portal. The Portal is a secure site, passwords are encryted and URLs are re-written so they cannot be copied and pasted. You and authorized family members are the only ones who can access your Portal. Also there is a timeout feature that protects your information if you leave the Portal page open. If you have technical difficulty please use the Contact Us link on the page this will allow you to submit any questions you have regarding the Portal or you may contact the Medical Record Department at [phone] ext [phone].
== END 2024-08-05 12:25 | disposition home or self-care (01) ==
LOC: ED 12:01
DX: S80.862A Insect bite (nonvenomous), left lower leg, initial encounter (principal); W57.XXXA Bitten or stung by nonvenomous insect and other nonvenomous arthropods, initial encounter; Y93.H2 Activity, gardening and landscaping; Y92.007 Garden or yard of unspecified non-institutional (private) residence as the place of occurrence of the external cause; I10 Essential (primary) hypertension; Z79.899 Other long term (current) drug therapy
CPT/HCPCS: 99281; A9270-GY

== ENCOUNTER 2024-11-19 18:23 | Emergency (ER) | payer OTHER ==
[2024-11-19 18:37] VITALS: RESP 16; TEMP 97.9
--- NOTE | 2024-11-19 19:25 | ERPHSYRPT ---
- History of Present Illness Source: patient Exam Limitations: no limitations Patient Subjective Stated Complaint: Intermittent LARKIN x 4 days. Triage Nursing Assessment: Pt presents to ED by 9 ambulatory. C/o LARKIN to forehead area intermittent x 4 days. States hasn't felt well since having fever/chills/larkin since [place]. States had all those symptoms for about 3 days after [place] and just hasn't felt well since. At this time, c/o headache and states gets winded after walking for a bit. A &Ox3, vss on RA, answers all questions appropriately. Skin PWD. Denies any vision changes, denies any numbness or tingling. [facility]. Was prescribed a z pack, but just started taking it today. Physician History: Patient's had a headache on and off for about 4 days. He describes it as throbbing. Sometimes it is unilateral and sometimes is bilateral. It does seem to migrate a little bit. He does not have any nausea or vomiting with that. He has no acute neurological deficits. He has not had any seizures or any worri some symptoms. Is not the worst headache of his life. She usually self-limited and it lasts about 30 minutes and it happens 2 or 3 times a day. He says that he has been taking ibuprofen and resting when it happens. He does not have a history of headaches.He has no other complaints at this time.He said no fever chills or any other systemic symptoms. 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 Recent Head Trauma: no recent headache/trauma Associated Symptoms: denies symptoms Previous symptoms: no prior history Allergies/Adverse Reactions: Penicillins Allergy (Verified 08/05/24 12:10) Home Medications: Buspirone HCl 10 mg PO TID PRN PRN 04/23/23 [History] Lisinopril/Hydrochlorothiazide [Lisinopril-Hctz 20-25 mg Tab] 1 each PO DAILY 04/23/23 [History] Escitalopram Oxalate [Lexapro] 10 mg PO DAILY 02/13/24 [History] Hx Tetanus, Diphtheria Vaccination/Date Given: No (unknown) Hx Influenza Vaccination/Date Given: No Hx Pneumococcal Vaccination/Date Given: No Travel Risk - International Travel Have you traveled outside of the country in past 3 weeks: No - Emerging Infectious Disease Are you exhibiting symptoms associated with any current EIDs: No - Review of Systems Constitutional: No Symptoms Eyes: No Symptoms Ears, Nose, & Throat: No Symptoms Respiratory: No Symptoms Neurological: Headache - Past Medical History Pertinent Past Medical History: Yes Neurological History: No Pertinent History ENT History: No Pertinent History Cardiac History: Hypertension Respiratory History: No Pertinent History Endocrine Medical History: No Pertinent History Musculoskeletal History: Fractures GI Medical History: No Pertinent History History: No Pertinent History Psycho-Social History: Depression Male Reproductive Disorders: No Pertinent History Other Medical History: broken tailbone - Past Surgical History Past Surgical History: Yes Neuro Surgical History: No Pertinent History Cardiac: No Pertinent History Respiratory: No Pertinent History Gastrointestinal: No Pertinent History Genitourinary: No Pertinent History Musculoskeletal: Orthopedic Surgery Male Surgical History: No Pertinent History Other Surgical History: rt femur, rt ankle - Social History Smoking Status: Never smoker Exposure to second hand smoke: No Drug Use: none Patient Lives Alone: No - Social Determinants of Health Will the patient participate in the screening: Declined to provide - Nursing Vital Signs Nursing Vital Signs: Initial Vital Signs Temperature 97.9 F 11/19/24 18:31 Pulse Rate 115 H 11/19/24 18:31 Respiratory Rate 16 11/19/24 18:31 Blood Pressure 133/107 11/19/24 18:31 O2 Sat by Pulse Oximetry 99 11/19/24 18:31 Pain Scale Pain Intensity 0 - Physical Exam General Appearance: no apparent distress Eye Exam: PERRL/EOMI Ears, Nose, Throat Exam: normal ENT inspection, pharynx normal Neck Exam: normal inspection, non-tender, supple, full range of motion, No meningismus Respiratory Exam: normal breath sounds, lungs clear, No chest tenderness, No respiratory distress Cardiovascular Exam: regular rate/rhythm, normal heart sounds Gastrointestinal/Abdominal Exam: soft, normal bowel sounds Coordination/Gait Exam: normal finger to nose, normal gait, normal cerebellar function Motor/Sensory Exam: no motor deficit, no sensory deficit Skin Exam: normal color SpO2: 99 - Course Nursing assessment & vital signs reviewed: Yes Ordered Tests: Active Orders 24 hr Category Date Time Status HEAD WITHOUT CONTRAST [CT] Stat Exams 11/19/24 20:15 Completed CBC W DIFF Stat Lab 11/19/24 19:27 Completed CMP Stat Lab 11/19/24 19:27 Completed Medication Summary Discontinued Medications Generic Name Dose Route Start Last Admin Trade Name Halley PRN Reason Stop Dose Admin Sodium Chloride 1,000 mls @ 999 mls/hr 11/19/24 19:25 11/19/24 20:48 Sodium Chloride 0.9% 1000 Ml IV 11/19/24 20:25 Infused .Q1H1M STA Infusion Sodium Chloride Confirm 11/19/24 19:27 Sodium Chloride 0.9% 1000 Ml Administered 11/19/24 19:28 Dose 1,000 mls @ ud .ROUTE .STK-MED ONE Lab/Rad Data: Laboratory Result Diagrams 11/19/24 19:27 11/19/24 19:27 Laboratory Results 11/19/24 11/19/24 Range/Units 19:27 19:27 WBC 7.8 (4.23-9.07) x10^3/uL RBC 5.22 (4.63-6.08) x10^6/uL Hgb 15.1 (13.7-17.5) g/dL Hct 45.2 (40.1-51.0) % MCV 86.6 (79.0-92.2) fL MCH 28.9 (25.7-32.2) pg MCHC 33.4 (32.3-36.5) g/dL RDW 11.9 (11.6-14.4) % Plt Count 270 (163-337) x10^3/uL MPV 9.4 (9.4-12.4) fL Gran % 68.3 H (34.0-67.9) % Immature Gran % (Auto) 0.5 H (0.001-0.429) % Nucleat RBC Rel Count 0.0 (0.00-0.2) % Eos # (Auto) 0.13 (0.04-0.54) x10^3/uL Immature Gran # (Auto) 0.04 H (0.001-0.031) x10^3u/L Absolute Lymphs (auto) 1.45 (1.32-3.57) x10^3/uL Absolute Monos (auto) 0.82 (0.30-0.82) x10^3/uL Absolute Nucleated RBC 0.00 (0.00-0.012) x10^3u/L Lymphocytes % 18.5 L (21.8-53.1) % Monocytes % 10.5 (5.3-12.2) % Eosinophils % 1.7 (0.8-7.0) % Basophils % 0.5 (0.2-1.2) % Absolute Granulocytes 5.36 (1.78-5.38) x10^3/uL Basophils # 0.04 (0.01-0.08) x10^3/uL Sodium 142 (135-145) mmol/L Potassium 4.0 (3.5-5.1) mmol/L Chloride 103 (98-107) mmol/L Carbon Dioxide 31 H (22-30) mmol/L Anion Gap 11.6 (5-15) MEQ/L BUN 20 (9-20) mg/dL Creatinine 1.15 (0.66-1.25) mg/dL Estimated GFR 86.7 ML/MIN Glucose 77 (74-106) mg/dL Calcium 9.6 (8.4-10.2) mg/dL Total Bilirubin 0.40 (0.2-1.3) mg/dL AST 34 (17-59) U/L ALT 37 (0-50) U/L Alkaline Phosphatase 64 (38-126) U/L Serum Total Protein 7.8 (6.3-8.2) g/dL Albumin 4.5 (3.5-5.0) g/dL - Progress Progress: improved Air Movement: good Progress Note: Patient was stable throughout stay. On the differential was migraine, tension headache, aseptic encephalitis,A lot less likely would be things like subarachn oid hemorrhage or aneurysm.The patient did have flulike illness about a week ago or a week and a half ago. He says that the symptoms have been worse since that happened. I am going to go ahead and get a CT scan of him.CT was done there is no abnormalities. I think the patient is having migraines. I am going to send him home with a prescription for some Compazine 11/19/24 20:04 11/19/24 23:04 Medical Desision Making - Independent Historian Additional History obtained from: Spouse - Diagnostic Testing Diagnostic test were ordered, analyzed, and reviewed by me: Yes Radiological Interpretation: Reviewed by me - Risk of complications Minimal Risk: Minimal risk of morbidity - Departure Departure Disposition: Home Clinical Impression: Migraine Condition: Stable Critical Care Time: No Referrals: URIEL ARREOLA FNP [Primary Care Provider] - Follow up/PCP as directed Instructions: Headache, Adult (DC)
[2024-11-19] MEDS ORDERED: Sodium Chloride 0.9% 1000 ML 1,000 ML ONE (19:27)
[2024-11-19] MEDS: Sodium Chloride 0.9% 1000 ML 1,000 ML IV STA (19:28)
[2024-11-19 19:30] LABS: Absolute Neutrophil Ct (ANC) 5.36 x10^3/uL (1.78-5.38); BASOPHIL % 0.5 % (0.2-1.2); Basophil (Absolute #) 0.04 x10^3/uL (0.01-0.08); Eosinophil % 1.7 % (0.8-7.0); Eosinophil (Absolute #) 0.13 x10^3/uL (0.04-0.54); Hematocrit 45.2 % (40.1-51.0); Hemoglobin 15.1 g/dL (13.7-17.5); IMMATURE GRAN # 0.04 x10^3u/L (0.001-0.031); IMMATURE GRAN % 0.5 % (0.001-0.429); Lymphocyte (Absolute #) 1.45 x10^3/uL (1.32-3.57); Lymphocytes % 18.5 % (21.8-53.1); Mean Cell Volume 86.6 fL (79.0-92.2); Mean Corpuscular Hemoglobin 28.9 pg (25.7-32.2); Mean Corpuscular Hgb Concent. 33.4 g/dL (32.3-36.5); Mean Platelet Volume 9.4 fL (9.4-12.4); Monocyte (Absolute #) 0.82 x10^3/uL (0.30-0.82); Monocytes % 10.5 % (5.3-12.2); Neutrophil % 68.3 % (34.0-67.9); Platelet Count 270 x10^3/uL (163-337); Red Blood Count 5.22 x10^6/uL (4.63-6.08); Red Cell Distribution Width 11.9 % (11.6-14.4); White Blood Count 7.8 x10^3/uL (4.23-9.07)
[2024-11-19 19:41] LABS: ALBUMIN 4.5 g/dL (3.5-5.0); ANION GAP 11.6 MEQ/L (5-15); BILIRUBIN,TOTAL 0.4 mg/dL (0.2-1.3); Calcium 9.6 mg/dL (8.4-10.2); Creatinine 1 1.15 mg/dL (0.66-1.25); EST GLOMERULAR FILTRATION RATE 86.7 ML/MIN; Total Protein 7.8 g/dL (6.3-8.2)
[2024-11-19 21:09] VITALS: PULSE 86
--- NOTE | 2024-11-19 22:59 | XRAY ---
CLINICAL HISTORY: headache COMPARISON: None. TECHNIQUE: Axial non-contrast CT scan of the brain was performed from the skull base to the high parietal region. One of the following dose reduction techniques were utilized for this exam: Automated exposure control, adjustment of the mA and/or kV according to patient size, use of iterative reconstruction. FINDINGS: Brain Parenchyma: Normal attenuation of the cerebral hemispheres, cerebellum, and brainstem. No evidence of acute infarct, hemorrhage, or mass effect. No abnormal areas of hypo- or hyperattenuation. Ventricular System: Ventricles are normal in size and configuration. No evidence of hydrocephalus or ventricular enlargement. Subarachnoid Spaces: Normal sulci and cisterns. No evidence of subarachnoid hemorrhage or extra-axial fluid collections. Cerebellum and Brainstem: Normal size and signal. No masses, lesions, or areas of abnormal signal. Orbits: Normal appearance of the globes, optic nerves, and extraocular muscles. No evidence of orbital masses or abnormal signal. Sinuses: Mucoperiosteal thickening is noted in bilateral maxillary sinuses. Partial mucosal opacification of left posterior ethmoid air cells. The rest of the paranasal sinuses are clear. Mastoid Air Cells: Clear mastoid air cells. No evidence of mastoiditis. Skull: Normal skull morphology. IMPRESSION: 1. No acute intracranial abnormality. 2. Mucoperiosteal thickening is noted in bilateral maxillary sinuses and posterior ethmoid air cells. Electronically Signed by: Audrey Donahue MD. (11/19/2024 22:56:06 EST)
[2024-11-19 23:04] VITALS: BP 111/76
[2024-11-19 23:06] VITALS: O2SAT 99
== END 2024-11-19 23:16 | disposition home or self-care (01) ==
LOC: ED 18:23
DX: G43.909 Migraine, unspecified, not intractable, without status migrainosus (principal); I10 Essential (primary) hypertension; Z79.899 Other long term (current) drug therapy
CPT/HCPCS: 36415; 70450; 80053; 85025; 96360; 96374; 99284